=== PATIENT | female | born 1990 | race Caucasian/White ===

== ENCOUNTER 2021-12-08 04:03 | Emergency (ER) | payer OTHER ==
[2021-12-08] MEDS ORDERED: ALBUTEROL SO4 2.5/IPRATROPIUM 0.5 INH SOL 3 ML VIAL.NEB. NEB ONE ×2 (04:08→04:13)
[2021-12-08 04:16] VITALS: BP 118/77; PULSE 81; TEMP 97.8; BMI 22.8
[2021-12-08] MEDS ORDERED: predniSONE 20 MG TABLET (UD) PO ONE (04:39)
[2021-12-08] MEDS ORDERED: predniSONE 20 MG TABLET (UD) ONE (04:43)
== END 2021-12-08 04:56 | disposition home or self-care (01) ==
LOC: FER 04:03
PROC: 3E0F7GC Introduction of Other Therapeutic Substance into Respiratory Tract, Via Natural or Artificial Opening (ICD-10-PCS; principal; 2021-12-08)
DX: J45.909 Unspecified asthma, uncomplicated (principal)
CPT/HCPCS: 99283-25